=== PATIENT | female | born 1960 | race Caucasian/White ===

== ENCOUNTER 2020-05-12 07:15 | Inpatient (IN) | payer MEDICAID, OTHER ==
[~2020-05-12] VITALS: Ht 167.6 cm; Wt 63.5 kg
[2020-05-12 07:15] VITALS: BP 154/92
--- NOTE | 2020-05-12 07:19 | NUR ---
DR. POST AT BEDSIDE EVALUATING PT.
--- NOTE | 2020-05-12 07:19 | NUR ---
BIBA TAKEN TO BED 7
--- NOTE | 2020-05-12 07:19 | NUR ---
[place] with orange juice boxes provided for patient to eat.
--- NOTE | 2020-05-12 07:20 | NUR ---
DR. POST MADE AWARE OF PTS RECTAL TEMP OF 90.4, LYNDSEY BEARD PLACED ON PT.
--- NOTE | 2020-05-12 07:42 | NUR ---
PT CHANGED INTO A HOSPTIAL GOWN AND PLACED ON BED WALKER FOR URINE SAMPLE.
--- NOTE | 2020-05-12 07:45 | NUR ---
LAB AT BEDSIDE.
--- NOTE | 2020-05-12 07:47 | NUR ---
59 Y/F BIBA FROM HOME, EMS WAS CALLED BY FAMILY WHEN PATIENT WAS FOUND IN HER BED UNRESPONSIVE WITH SNORING RESPIRATIONS. EMS ARRIVED ON SCENE BLOOD SUGAR WAS 36. IV ESTABLISHED AND 250ML OF DEXTROS 10% WAS GIVEN. EMS STATES THEY WAITED 10-15 MINUTES TO SEE HOW PATIENT WOULD RESPOND. PT WAS STILL VERY ALTERED, AOX2. LAST SEEN NORMAL SOME TIME LAST NIGHT BY FAMILY. PER FAMILY PT IS AOX4, GCS 15. PT ALERT TO NAME, PLACE, AND EVENT. PT LETHARGIC AND COOPERATIVE. SKIN IS COLD TO TOUCH, RECTAL TEMP 90.4, WARMING MEASURES APPLIED. PT DENIES CHEST PAIN OR SOB AT THIS TIME. PT UNABLE TO RECALL WHETHER OR NOT SHE TOOK HER INSULIN THIS MORNING. SHUNT TO L ARM. SKIN INTACT, PULSES 2+. HX BREAST CANCER TO LEFT BREAST, DM, HTN, DIALYSIS (LEFT ARM SHUNT), CHF
--- NOTE | 2020-05-12 08:01 | NUR ---
XR AT BEDSIDE.
--- NOTE | 2020-05-12 08:02 | NUR ---
PT UNABLE TO PROVIDE URINE AT THIS TIME.
[2020-05-12 08:07] LABS: BASOPHILS # (AUTO) 0.1 K/uL (0.00-0.22); BASOPHILS % (AUTO) 1.3 % (0.0-2.0); EOSINOPHILS # (AUTO) 0.1 K/uL (0-0.4); EOSINOPHILS % (AUTO) 1.3 % (0.0-4.0); HEMATOCRIT 36.2 % (36-48); LYMPHOCYTES # (AUTO) 1.6 K/uL (2.5-16.5); LYMPHOCYTES % (AUTO) 24.5 % (20.5-51.1); MEAN CORPUSCULAR HEMOGLOBIN 33 pg (27-31); MEAN CORPUSCULAR HGB CONC 33 g/dL (33-37); MEAN CORPUSCULAR VOLUME 98.6 fL (80-94); MONOCYTES # (AUTO) 0.3 K/uL (0.8-1.0); MONOCYTES % (AUTO) 4.1 % (1.7-9.3); NEUTROPHILS # (AUTO) 4.4 K/uL (1.8-7.7); NEUTROPHILS % (AUTO) 68.8 % (42.2-75.2); PLATELET COUNT (AUTO) 325 K/uL (140-450); RED BLOOD CELL COUNT(AUTO) 3.67 MIL/uL (4.20-5.40); RED CELL DISTRIBUTION WIDTH 15.4 % (11.6-13.7); WHITE BLOOD COUNT (AUTO) 6.4 K/uL (4.8-10.8)
[2020-05-12 08:19] LABS: ALBUMIN 2.4 g/dL (3.4-5.0); ANION GAP 16.2 (8-16); CARBON DIOXIDE 22.6 mmol/L (21-32); CREATININE 1.1 mg/dL (0.6-1.3); POTASSIUM 3.8 mmol/L (3.5-5.1); TOTAL BILIRUBIN 0.4 mg/dL (0.0-1.0)
--- NOTE | 2020-05-12 08:20 | NUR ---
RICHARD CIFUENTES [phone]
--- NOTE | 2020-05-12 08:21 | NUR ---
UPDATED PTS DAUGTHER ON PTS STATUS.
--- NOTE | 2020-05-12 08:21 | NUR ---
URINE COLLECTED AND LAB CALLED FOR [facility] HISTORY PROFESSOR.
--- NOTE | 2020-05-12 08:23 | NUR ---
BREAKFAST TRAY AT PTS BEDSIDE.
--- NOTE | 2020-05-12 08:57 | NUR ---
RECTAL TEMP NOW 91.2.
[2020-05-12 09:08] LABS: APPEARANCE,URINE HAZY (CLEAR); BILIRUBIN,URINE NEGATIVE (NEGATIVE); BLOOD, URINE NEGATIVE (NEGATIVE); COLOR,URINE YELLOW (YELLOW); LEUKOCYTE ESTERASE ,URINE TRACE (NEGATIVE); NITRITE, URINE NEGATIVE (NEGATIVE); UGLUCOSE TRACE (NEGATIVE)
[2020-05-12] MEDS ORDERED: BLOOD GLUCOSE MONITORING 1 DEV DEV FS ONE (09:15)
[2020-05-12 09:18] LABS: RBC,URINE 0-5 /HPF (0-5); WBC,URINE 0-5 /HPF (0-5)
--- NOTE | 2020-05-12 09:42 | NUR ---
DR. POST AT BEDSIDE REEVALUATING PT.
--- NOTE | 2020-05-12 10:22 | NUR ---
PT RESTING IN BED, RR EVEN AND UNLABORED. BED IN LOWEST POSITION, SIDE RAIL UP X 1.
--- NOTE | 2020-05-12 10:40 | NUR ---
Rectal temp 92.6
--- NOTE | 2020-05-12 10:50 | NUR ---
ARNIED MADE AWARE OF PTS HR OF 136, WILL REPEAT EKG
--- NOTE | 2020-05-12 10:56 | NUR ---
PT DENIES CP, SOB, OR PALPITATIONS.
--- NOTE | 2020-05-12 11:04 | NUR ---
PT A&O X 2. ALERT TO PERSON AND PLACE.
[2020-05-12] MEDS ORDERED: ONDANSETRON 4 MG/2 ML VIAL IM/IVP PRN (11:20)
[2020-05-12] MEDS ORDERED: HYDROcodone/APAP 5/325 MG 1 TAB TAB PO PRN (11:20)
[2020-05-12] MEDS ORDERED: ACETAMINOPHEN 325 MG TAB PO PRN (11:20)
[2020-05-12] MEDS ORDERED: MORPHINE SULFATE 2 MG/ML SYR IVP PRN (11:20)
[2020-05-12] MEDS ORDERED: DOCUSATE SODIUM 100 MG GELCAP PO PRN (11:20)
--- NOTE | 2020-05-12 11:21 | NUR ---
COVID SWAB COLLECTED, PT TOLERATED WELL. LAB CALLED FOR PICKUP.
[2020-05-12] MEDS: NACL 0.9% 1,000 ML IV SCH (11:37)
[2020-05-12 11:48] LABS: BARBITURATE, URINE NEGATIVE ng/ml (NEG <=200); BENZODIAZEPINE, URINE NEGATIVE ng/mL (NEG <=200); CANNABINOID, URINE NEGATIVE ng/mL (NEG <=50); COCAINE, URINE NEGATIVE ng/mL (NEG <=300); OPIATE, URINE NEGATIVE ng/mL (NEG <=2000); PHENCYCLIDINE SCREEN,URINE NEGATIVE ng/mL (NEG <=25)
--- NOTE | 2020-05-12 11:50 | NUR ---
LUNCH ORDER PLACED, AND DIETARY CALLED TO CONFIRM ORDER.
--- NOTE | 2020-05-12 12:15 | NUR ---
PT GIVEN LUNCH TRAY.
--- NOTE | 2020-05-12 12:45 | NUR ---
CALLED TAN[facility] FOR REPORT, NO ANSWER, WILL CALL BACK
--- NOTE | 2020-05-12 12:53 | NUR ---
CALLED REPORT TO JOVAN CISSE AT EXT [phone]
[2020-05-12 12:54] LABS: MAGNESIUM 1.8 mg/dL (1.8-2.4); PHOSPHORUS 2.4 mg/dL (2.5-4.9); THYROID STIMULATING HORMONE 0.62 uIU/mL (0.34-3.74)
--- NOTE | 2020-05-12 13:05 | NUR ---
Patient will be admitted to care of DR. CHOWDARY. Admited to TELE. Will go to room 113A. Belongings list completed. Report to JOVAN CISSE.
--- NOTE | 2020-05-12 13:05 | NUR ---
RECEIVED PT FROM ER NURSE, PT HAS RIGHT HAND 20G INFUSING NS AT 40ML, PT AAOX4, NO SIGNS OF DISTRESS NOTED, RESPIRATIONS ARE EVEN AND UNLABORED ON ROOM AIR, PT AMBULATED TO THE BATHROOM WITH HELP OF ER NURSE, PER ER NURSE PT HAS LEFT AV SHUNT, PER PT SHE HAS HX OF LEFT BREAST CANCER. INTRODUCE PT TO ROOM, MRSA SWAB OBTAINED, BED IN LOW POSITION, SAFETY MEASURES IN PLACE, CALL LIGHT WITHIN REACH, WILL CONTINUE TO MONITOR.
[2020-05-12 13:15] VITALS: BP 190/111
[2020-05-12] MEDS: amLODIPine 5 MG TAB PO SCH (14:32)
--- NOTE | 2020-05-12 14:32 | NUR ---
ADMINISTERED SCHEDULED MEDICATION, MEDICATION EDUCATION PROVIDED, PT VERBALIZED UNDERSTANDING, PT TOLERATED WELL, PT IS STABLE, CALL LIGHT WITHIN REACH, WILL CONTINUE TO MONITOR
[2020-05-12 16:00] VITALS: BP 175/83
--- NOTE | 2020-05-12 16:30 | NUR ---
NOTIFIED DR CHOWDARY PT HAS ELEVATED BP, RECEIVED TORB TO GIVE 9PM METOPROLOL NOW, WILL CARRY IT OUT ORDER.
[2020-05-12] MEDS ORDERED: METOPROLOL 25 MG TAB ONE (17:02)
[2020-05-12] MEDS: METOPROLOL 25 MG TAB PO SCH (17:04)
--- NOTE | 2020-05-12 17:06 | NUR ---
ADMINISTERED METOPROLOL EARLY PER DR CHOWDARY ORDER FOR ELEVATED BP, MEDICATION EDUCATION PROVIDED, PT VERBALIZED UNDERSTANDING, PT TOLERATED WELL, PT IS STABLE, WILL CONTINUE TO MONITOR.
[2020-05-12] MEDS ORDERED: DEXTROSE 50% 50 ML SYR IVP PRN (17:35)
--- NOTE | 2020-05-12 19:27 | NUR ---
IV INFILTRATED, REMOVE IV, NIGHT NURSE AWARE, ENDORSE PT TO NIGHT NURSE FOR CONTINUITY OF CARE, PT IS STABLE.
--- NOTE | 2020-05-12 19:30 | NUR ---
RECEIVED ENDORSEMENT FROM AM NURSE. PT IS SITTING UP IN BED, EATING. NO DISTRESS, NO SOB NOTED. RESPIRATIONS EVEN AND UNLABORED. DENIES PAIN/DISCOMFORT AT THIS TIME. IV NOT INFUSING DUE TO IV LINE INFILTRATION. SAFETY MEASURES IN PLACED. BED IN LOWEST POSITION. CALL LIGHT IN REACH. WILL CONTINUE TO MONITOR.
[2020-05-12 20:00] VITALS: BP 144/92
--- NOTE | 2020-05-12 20:40 | NUR ---
ACCOMPANIED PT TO CT SCAN VIA WHEELCHAIR. TOLERATED CT WELL. ASSISTED BACK TO ROOM.
--- NOTE | 2020-05-12 21:00 | NUR ---
PT HAS CAROTID ULTRASOUND AT BEDSIDE. ABLE TO COOPERATE WELL. INFORMED PT REGARDING IV RE-INSERTION, STATED THAT GIVE HER ARM A REST AND SHOULD TRY LATER. WILL CONTINUE TO MONITOR.
[2020-05-12] MEDS: BLOOD GLUCOSE MONITORING 1 DEV DEV FS SCH (21:18)
[2020-05-12] MEDS: CLONIDINE HYDROCHLORIDE 0.1 MG TAB PO SCH (21:19)
--- NOTE | 2020-05-12 23:00 | NUR ---
CHECKED ON PT, SITTING UP ON BED COMFORTABLY, ASKED FOR ADDITIONAL WARM BLANKET. NO C/O PAIN OR DISCOMFORT AT THIS TIME. NO SOB, NO DISTRESS NOTED. CALL LIGHT IN REACH. WILL CONTINUE TO MONITOR.
[2020-05-13] VITALS: BP 111/72
--- NOTE | 2020-05-13 01:05 | NUR ---
RE-INSERTED IV LINE ACCESS ON R WRIST 24G X1 SUCCESSFUL ATTEMPT. PT TOLERATING WELL. WILL CONTINUE TO MONITOR.
--- NOTE | 2020-05-13 03:05 | NUR ---
ROUNDS DONE. PT SLEEPING COMFORTABLY IN BED, NO ACUTE DISTRESS NOTED, NO SOB. SAFETY MEASURES IN BED. CALL LIGHT WITHIN REACH. WILL CONTINUE TO MONITOR.
[2020-05-13 04:00] VITALS: BP 118/61
[2020-05-13] MEDS: CLONIDINE HYDROCHLORIDE 0.1 MG TAB PO SCH ×3 (04:55→21:00)
--- NOTE | 2020-05-13 05:00 | NUR ---
PT REQUESTED ASSISTANCE TO GET UP AND USE THE BATHROOM. ASSISTED BACK TO BED CAREFULLY. SAFETY MEASURES IN PLACED. WILL CONTINUE TO MONITOR.
[2020-05-13] MEDS: BLOOD GLUCOSE MONITORING 1 DEV DEV FS SCH ×4 (06:23→20:04)
--- NOTE | 2020-05-13 06:23 | NUR ---
BLOOD GLUCOSE CHECKED-270 MG/DL. ADMINISTERED 6 UNITS OF INSULIN PER ORDER. WILL CONTINUE TO MONITOR.
[2020-05-13] MEDS: INSULIN LISPRO SLIDING SCALE 100 UNITS/ML VIAL SUBQ PRN ×2 (06:24→17:13)
[2020-05-13 06:53] LABS: BASOPHILS % (AUTO) 0.5 % (0.0-2.0); EOSINOPHILS # (AUTO) 0.1 K/uL (0-0.4); EOSINOPHILS % (AUTO) 1.5 % (0.0-4.0); HEMATOCRIT 25.4 % (36-48); HEMOGLOBIN 8.5 g/dL (12.0-16.0); LYMPHOCYTES # (AUTO) 1.6 K/uL (2.5-16.5); MEAN CORPUSCULAR HEMOGLOBIN 33 pg (27-31); MEAN CORPUSCULAR HGB CONC 33 g/dL (33-37); MEAN CORPUSCULAR VOLUME 99.6 fL (80-94); MONOCYTES # (AUTO) 0.5 K/uL (0.8-1.0); MONOCYTES % (AUTO) 5.4 % (1.7-9.3); NEUTROPHILS # (AUTO) 6.4 K/uL (1.8-7.7); NEUTROPHILS % (AUTO) 73.6 % (42.2-75.2); PLATELET COUNT (AUTO) 256 K/uL (140-450); RED BLOOD CELL COUNT(AUTO) 2.55 MIL/uL (4.20-5.40); RED CELL DISTRIBUTION WIDTH 15.6 % (11.6-13.7); WHITE BLOOD COUNT (AUTO) 8.6 K/uL (4.8-10.8)
[2020-05-13 07:07] LABS: ANION GAP 13.6 (8-16); CARBON DIOXIDE 22.3 mmol/L (21-32); CREATININE 1.5 mg/dL (0.6-1.3); POTASSIUM 3.9 mmol/L (3.5-5.1)
--- NOTE | 2020-05-13 07:12 | NUR ---
ENDORSED PT TO AM SHIFT NURSE, IN STABLE CONDITION, FOR CONTINUITY OF CARE.
[2020-05-13 08:00] VITALS: BP 114/78
[2020-05-13] MEDS: amLODIPine 5 MG TAB PO SCH (08:25)
[2020-05-13] MEDS: METOPROLOL 25 MG TAB PO SCH ×2 (08:25→21:00)
--- NOTE | 2020-05-13 09:19 | NUR ---
PT REASSESSED AND TAKEN BLOOD SUGAR AFTER D50 ADMIN AND PO INTAKE OF OJ. PT AT 0825 BLOOD GLU 37 AND NOW AT 115. PT ASYMPTOMATIC THROUGHOUT.
[2020-05-13] MEDS: NACL 0.9% 1,000 ML IV SCH (11:20)
--- NOTE | 2020-05-13 11:44 | NUR ---
PT BLOOD SUGAR 61, PT ASYMPTOMATIC AND ALERT AND ORIENTED. PT GIVEN TWO ORANGE JUICE BOXES AND WILL BE ADMIN D50.
--- NOTE | 2020-05-13 12:00 | NUR ---
PT IV GOT INFILTRATED AND ATTEMPTING TO ESTABLISH NEW ONE. PT GIVEN 3 MORE JUICE BOXES AND LUNCH TO PT. PT REPORTS ASYMPTOMATIC AND A/O X4.
[2020-05-13 12:24] VITALS: BP 125/76
--- NOTE | 2020-05-13 13:05 | NUR ---
PT IN NO APPARENT DISTRESS AND ASYMPTOMATIC. PT GIVEN A BEAR HUGGER D/T TEMPERATURE LOW. PT REPORTS NO PAIN.
[2020-05-13] MEDS: ASCORBIC ACID 500 MG TAB PO SCH (13:42)
[2020-05-13] MEDS: FERROUS SULFATE 325 MG TABEC PO SCH ×2 (13:42→16:12)
[2020-05-13 15:13] VITALS: BP 103/96
--- NOTE | 2020-05-13 15:38 | NUR ---
PT REPORTS NO PAIN AND SLEEPING RIGHT RECUMBENT.
--- NOTE | 2020-05-13 18:54 | NUR ---
PT EATING DINNER, WATCHING TV AND REPORTS NO PAIN. WILL ENDORSE CARE TO BORE MINER OPERATOR RN.
--- NOTE | 2020-05-13 19:40 | NUR ---
RECEIVED REPORT FROM TIAN RNADAN. PT AOX3 ON ROOM AIR. NO S/S RESPIRATORY DISTRESS. NO C/O PAIN AT THIS TIME. IV SITE R WRIST 24G, PATENT AND INTACT, INFUSING NS AT 60 ML/HR. SAFETY MEASURES IN PLACE. CALL LIGHT WITHIN REACH. WILL CONTINUE TO MONITOR
[2020-05-13 20:00] VITALS: BP 104/70
--- NOTE | 2020-05-13 21:35 | NUR ---
ADMINISTERED SCHEDULED MEDS. HELD BP MEDS DUE TO DECREASED BLOOD PRESSURE. PT BLOOD SUGAR 70, NO INSULIN COVERAGE NEEDED. PT TOLERATED WELL. NO DISTRESS NOTED. WILL CONTINUE TO MONITOR
--- NOTE | 2020-05-13 23:45 | NUR ---
PT ASLEEP IN BED. RESPIRATIONS EVEN AND UNLABORED. NO DISTRESS NOTED. WILL CONTINUE TO MONITOR
[2020-05-14] VITALS: BP 104/64
[2020-05-14] MEDS: NACL 0.9% 1,000 ML IV SCH (02:32)
--- NOTE | 2020-05-14 02:35 | NUR ---
PT ASLEEP IN BED. NO DISTRESS NOTED. WILL CONTINUE TO MONITOR
[2020-05-14 04:00] VITALS: BP 119/82
[2020-05-14] MEDS: CLONIDINE HYDROCHLORIDE 0.1 MG TAB PO SCH ×3 (05:00→15:54)
[2020-05-14] MEDS: BLOOD GLUCOSE MONITORING 1 DEV DEV FS SCH ×3 (05:59→16:55)
[2020-05-14] MEDS: INSULIN LISPRO SLIDING SCALE 100 UNITS/ML VIAL SUBQ PRN ×2 (06:00→17:04)
--- NOTE | 2020-05-14 06:11 | NUR ---
PT BLOOD SUGAR 285, GAVE 6 UNITS INSULIN SUBQ PER SLIDING SCALE. TOLERATED WELL. WILL CONTINUE TO MONITOR
[2020-05-14 06:24] LABS: BASOPHILS % (AUTO) 0.6 % (0.0-2.0); EOSINOPHILS # (AUTO) 0.1 K/uL (0-0.4); EOSINOPHILS % (AUTO) 1.8 % (0.0-4.0); HEMATOCRIT 23.9 % (36-48); HEMOGLOBIN 7.7 g/dL (12.0-16.0); LYMPHOCYTES # (AUTO) 1.9 K/uL (2.5-16.5); LYMPHOCYTES % (AUTO) 28.9 % (20.5-51.1); MEAN CORPUSCULAR HEMOGLOBIN 33 pg (27-31); MEAN CORPUSCULAR HGB CONC 33 g/dL (33-37); MEAN CORPUSCULAR VOLUME 100.3 fL (80-94); MONOCYTES # (AUTO) 0.4 K/uL (0.8-1.0); NEUTROPHILS % (AUTO) 62.7 % (42.2-75.2); PLATELET COUNT (AUTO) 240 K/uL (140-450); RED BLOOD CELL COUNT(AUTO) 2.38 MIL/uL (4.20-5.40); WHITE BLOOD COUNT (AUTO) 6.4 K/uL (4.8-10.8)
[2020-05-14 06:52] LABS: ANION GAP 13.9 (8-16); CARBON DIOXIDE 22.2 mmol/L (21-32); CREATININE 1.1 mg/dL (0.6-1.3); POTASSIUM 4.1 mmol/L (3.5-5.1)
[2020-05-14 06:56] LABS: MAGNESIUM 1.3 mg/dL (1.8-2.4); PHOSPHORUS 2.4 mg/dL (2.5-4.9)
--- NOTE | 2020-05-14 07:30 | NUR ---
ENDORSED PT TO DAY RN FOR CONTINUITY OF CARE. PT IS IN STABLE CONDITION
--- NOTE | 2020-05-14 08:00 | NUR ---
RECEIVED REPORT FROM CONCRETE TRUCK DRIVER. PATIENT ALERT AWAKE ORIENTED X4, NOT IN ANY DISTRESS NOTED. WITH IVF ON GOING AND INFUSING WELL. ON MONITOR SHOWS SR. PATIENT ON BEAR HUGGER. VITALS STABLE. NEEDS ATTENDED. WILL CONTINUE TO MONITOR.
[2020-05-14] MEDS: amLODIPine 5 MG TAB PO SCH (08:51)
[2020-05-14] MEDS: METOPROLOL 25 MG TAB PO SCH (08:51)
[2020-05-14] MEDS: ASCORBIC ACID 500 MG TAB PO SCH (08:51)
[2020-05-14] MEDS: FERROUS SULFATE 325 MG TABEC PO SCH ×2 (08:52→16:56)
--- NOTE | 2020-05-14 09:00 | NUR ---
DUE MEDICATIONS GIVEN AND TOLERATED WELL. WILL CONTINUE TO MONITOR.
--- NOTE | 2020-05-14 09:15 | NUR ---
PATIENT HAS BEEN SCREENED AND CATEGORIZED HIGH NUTRITION RISK. PATIENT WILL BE SEEN WITHIN 1-2 DAYS OF ADMISSION. 05/14/[address]
[2020-05-14 09:45] VITALS: BP 121/80
[2020-05-14 10:10] LABS: FOLIC ACID 3.5 ng/mL (>3.0)
[2020-05-14] MEDS ORDERED: MAG SULF 2000 MG/WATER PREMIX 50 ML IV SCH (11:00)
--- NOTE | 2020-05-14 11:00 | NUR ---
PATIENT AWAKE ALERT AND ORIENTED X R LORE ANY PAIN. CHECKED BLOOD GLUCOSE 72 SNACK GIVEN , DENIES ANY PAIN VITALS STABLE WILL CONTINUE TO MONITOR.
--- NOTE | 2020-05-14 11:55 | NUR ---
DISCHARGE PLANNING: CONTACTED [facility] AT [phone], ABLE TO SPEAK TO PARI MUTUEL TICKET SELLER ROSA. REQUESTED TO BE TRANSFERRED TO THE IN CHARGE. HE STATED [facility] IS THE ONE IN CHARGE OF THIS PATIENT, HOWEVER THEY ARE NOT ALLOWED TO GET VERBAL UPDATES ANYMORE, WE HAVE TO SEND CLINICALS TO THEM. INFORMED HIM THAT WE GOT A DENIAL LETTER FROM THEM AND HE CONFIRMED BECAUSE OF NOT RECEIVING UPDATED LABS, PROGRESS NOTES AND IMAGING REPORT. INFORMED HIM THAT I WILL FAX IT OVER. REQUESTED REPORTS SENT TO [facility] AT [phone]. Addendum: 05/14/20 at 1356 by Sahra Ponce THIS IS A 59 Y/O FEMALE PATIENT FROM HOME, WHO CAME IN DUE TO ALOC. PAST MEDICAL HISTORY INCLUDE DIABETES, HTN, LEFT BREAST CA. INITIAL DIAGNOSIS OF HYPOTHERMIA, HYPOGLYCEMIA. BS ON ADMISSION 30'S, LATEST BS 300. FOR DC TODAY.
[2020-05-14 12:00] VITALS: BP 114/74
[2020-05-14 16:00] VITALS: BP 139/89
--- NOTE | 2020-05-14 17:40 | NUR ---
DISCHARGE INSTRUCTION GIVEN ,ALL PAPER WORK SIGNED BY THE PATIENT. VERBALIZED UNDERSTANDING . DC HOME ACCOMPANY BY HER DAUGHTER.
== END 2020-05-14 17:58 | disposition home or self-care (01) | DRG 48 ==
LOC: MED 07:15 → MTU 11:21
PROVIDERS: ADMIT Hospitalist; ATTEND Hospitalist
DX: G90.8 Other disorders of autonomic nervous system (principal); E11.649 Type 2 diabetes mellitus with hypoglycemia without coma; E43 Unspecified severe protein-calorie malnutrition; E86.0 Dehydration; R68.0 Hypothermia, not associated with low environmental temperature; I16.1 Hypertensive emergency; E83.39 Other disorders of phosphorus metabolism; N17.0 Acute kidney failure with tubular necrosis; D50.9 Iron deficiency anemia, unspecified; I12.9 Hypertensive chronic kidney disease with stage 1 through stage 4 chronic kidney disease, or unspecified chronic kidney disease; I50.9 Heart failure, unspecified; Z20.828 Contact with and (suspected) exposure to other viral communicable diseases; Z68.22 Body mass index [BMI] 22.0-22.9, adult; Z85.3 Personal history of malignant neoplasm of breast; Z82.49 Family history of ischemic heart disease and other diseases of the circulatory system; Z88.0 Allergy status to penicillin
CPT/HCPCS: 36415; 70450; 71045; 80048; 80053; 80305; 81001; 82140; 82607; 82728; 82746; 82948; 83036; 83540; 83690; 83735; 84100; 84443; 85025; 85045; 87081; 87086; 93005; 93880; 97116; 97161-GP; 99285; J1644; J3475; J7030

== ENCOUNTER 2020-07-01 07:21 | Emergency (ER) | payer MEDICAID, SELFPAY ==
[~2020-07-01] VITALS: Ht 165.1 cm; Wt 47.6 kg
[2020-07-01 07:31] VITALS: BP 161/108
--- NOTE | 2020-07-01 07:35 | NUR ---
59/F biba from home with c/o ALOC. Pt was found by family, BS 29 pt was given soda and EMS arrived.
[2020-07-01 08:28] LABS: BASOPHILS % (AUTO) 0.7 % (0.0-2.0); EOSINOPHILS % (AUTO) 0.9 % (0.0-4.0); HEMATOCRIT 36.8 % (36-48); HEMOGLOBIN 12.2 g/dL (12.0-16.0); LYMPHOCYTES # (AUTO) 1.4 K/uL (2.5-16.5); LYMPHOCYTES % (AUTO) 31.9 % (20.5-51.1); MEAN CORPUSCULAR HEMOGLOBIN 32 pg (27-31); MEAN CORPUSCULAR HGB CONC 33 g/dL (33-37); MEAN CORPUSCULAR VOLUME 96.5 fL (80-94); MONOCYTES # (AUTO) 0.3 K/uL (0.8-1.0); MONOCYTES % (AUTO) 6.9 % (1.7-9.3); NEUTROPHILS # (AUTO) 2.6 K/uL (1.8-7.7); NEUTROPHILS % (AUTO) 59.6 % (42.2-75.2); PLATELET COUNT (AUTO) 251 K/uL (140-450); RED BLOOD CELL COUNT(AUTO) 3.82 MIL/uL (4.20-5.40); RED CELL DISTRIBUTION WIDTH 13.5 % (11.6-13.7); WHITE BLOOD COUNT (AUTO) 4.4 K/uL (4.8-10.8)
[2020-07-01 08:36] LABS: ANION GAP 19.6 (8-16); CREATININE 1.4 mg/dL (0.6-1.3); POTASSIUM 4.6 mmol/L (3.5-5.1)
--- NOTE | 2020-07-01 09:00 | NUR ---
PT EATING BREAKFAST.
--- NOTE | 2020-07-01 12:31 | NUR ---
VOICEMAIL LEFT FOR DAUGHTER ZACHERY. PT MADE AWARE.
--- NOTE | 2020-07-01 13:38 | NUR ---
Patient discharged with v/s stable. Written and verbal after care instructions given and explained. Patient verbalized understanding. Wheel chair assiste to car. All questions addressed prior to discharge. Advised to follow up with PMD.
[2020-07-01 13:39] VITALS: BP 161/108
== END 2020-07-01 13:38 | disposition home or self-care (01) ==
LOC: MED 07:21
DX: E11.65 Type 2 diabetes mellitus with hyperglycemia (principal); I10 Essential (primary) hypertension; Z88.0 Allergy status to penicillin; Z85.3 Personal history of malignant neoplasm of breast
CPT/HCPCS: 36415; 80048; 84484; 85025; 93005; 99284